=== PATIENT | female | born 1965 | race Caucasian/White ===

== ENCOUNTER 2017-10-04 11:55 | Day surgery (SDC) | payer OTHER, SELFPAY ==
--- NOTE | 2017-10-04 | PATH_ITS ---
[facility] Accession Number: [id number] . 01 Material submitted: . CECAL POLYP . 02 Diagnosis: Cecum Polyp, Biopsies: Tubular adenoma, fragmented; negative for high-grade dysplasia. [facility]/10/05/2017 . 02 Electronically signed: . Samantha Martinez MD, Pathologist NPI- [id number] . 01 Gross description: . Received in one formalin-filled container, labeled with the patient's name, labeled cecal polyp. The specimen consists of four 0.2-0.8 cm portions of tissue, entirely submitted in one cassette. ([id number]) /FRR . 02 Pathologist provided ICD-10: K63.5 . 02 CPT . 939912 Performed at: 01 [facility] [address] [id number] MD Ricco Harrell MD Phone: [phone] Performed at: 02 [facility] [address] [place], [place] [id number] MD Addison Burleson MD Phone: [phone]
[2017-10-04 12:23] VITALS: BMI 23.6
[2017-10-04 12:35] VITALS: BP 110/75; PULSE 64; RESP 15; TEMP 35.9; O2SAT 99
[2017-10-04] MEDS: SODIUM CHLORIDE 0.9% 1,000 ML 200 ML IV (12:37)
--- NOTE | 2017-10-04 12:57 | PM.HP.1 ---
History of Present Illness Date Patient Seen: 10/04/17 Time Patient Seen: 12:57 Chief complaint: 04003 Narrative: 52-year-old female who presents now for colorectal screening. She has had no prior examination for such. On further history today she denies any recent gastrointestinal symptoms. She denies any nausea, vomiting, abdominal pain, loss of appetite, unexplained weight loss, change in bowel habits, diarrhea, constipation, melena, hematochezia, or bright red blood per rectum. Patient History Medical History Chronic sinusitis (Acute) Hypercholesterolemia (Acute) Osteoarthritis (Acute) Seasonal allergies (Acute) Surgical History History of carpal tunnel release (Acute) History of section (Acute) History of lumbar discectomy (Acute) Hx of repair of left rotator cuff (Acute) Hx of repair of right rotator cuff (Acute) Status post hysterectomy (Acute) Family & Social History Family History: Reviewed 10/04/17 by Sebastian Mann MD Social History: household members spouse Tobacco & Substance use: Nonsmoker Comment: No history of alcohol use Meds Home Medications Medication Instructions Recorded Confirmed Type acetaminophen 500 mg PO BEDTIME PRN 10/04/17 10/04/17 History atorvastatin 20 mg PO DAILY 10/04/17 10/04/17 History cetirizine [Zyrtec] 10 mg PO DAILY 10/04/17 10/04/17 History cholecalciferol (vitamin D3) 1,000 unit PO DAILY 10/04/17 10/04/17 History [Vitamin D3] glucosamine sulfate [Glucosamine] See Label Instructions .ROUTE 10/04/17 10/04/17 History .COMPLEX lysine See Label Instructions .ROUTE 10/04/17 10/04/17 History .COMPLEX turmeric root extract 500 mg PO DAILY 10/04/17 10/04/17 History Allergies Allergy/AdvReac Type Severity Reaction Status Date / Time No Known Drug Allergies Allergy Verified 10/04/17 12:18 Review of Systems Review of Systems All systems reviewed & are unremarkable except as noted in HPI and below Exam Vital Signs (past 8 hours): - 10/04/17 12:35 Temperature 96.7 F L Pulse Rate 64 Respiratory Rate 15 Blood Pressure 110/75 Pulse Oximetry 99 Oxygen Delivery Method Room Air Narrative Exam Narrative: Well-nourished well-developed thin female in no acute distress. Alert oriented x3. Her is at the bedside throughout the entire visit. Sclera nonicteric Chest clear to auscultation bilaterally with regular rate rhythm. No murmurs, gallops, rubs Abdomen soft, nondistended, nontender, no masses Extremities show no clubbing, cyanosis, or edema Objective Labs Labs: No recent laboratory or radiographic studies for review Assessment & Plan (1) Screening for colorectal cancer: Current visit: Yes Status: Acute Plan: Assessment/Plan Narrative: 52-year-old female who presents for colorectal screening by age criteria. I recommend colonoscopy. Technical details of the procedure were discussed at length. Risks, benefits, alternatives were explained. Risks including but not limited to sedation, aspiration, bleeding, pain, missed lesion, incomplete examination, need for further radiographic studies, colonic perforation, need for major abdominal surgery, and all attendant risks of major surgery were explained in detail. All questions were answered to her satisfaction, and she voiced understanding. Consent was placed on the chart. We will proceed as planned.
--- NOTE | 2017-10-04 13:03 | PM.PREOP ---
Pre-operative Note Interval Note Pre-op Check: History & Physical Reviewed by Physician, Exam Performed and History & Physical exam performed today H&P completed within 30 days and has changed as indicated here:: History physical examination completed today. Patient requires colorectal screening. Colonoscopy is currently recommended. History physical examination is on the chart today. Consent is signed. Proceed with endoscopy as planned today. ASA Class (for procedural sedation): II
[2017-10-04] MEDS: MIDAZOLAM 5 MG/5 ML VIAL IV (13:22)
[2017-10-04] MEDS: fentaNYL 250 MCG/5 ML INJ IV (13:23)
--- NOTE | 2017-10-04 13:29 | PM.OP.ENDO ---
Operative Date/Time/Diagnoses - Date of procedure: 10/04/17 Time of procedure: 13:29 Pre-op diagnosis: Colorectal screening Post-op diagnosis: other (Cecal polyp) Procedure & Clinicians Study performed: 1. Sedation per surgeon 2. Colonoscopy with cold forceps polypectomy Same procedure as scheduled: Yes Indications: 52-year-old female requiring colorectal screening by age criteria. Colonoscopy was recommended. Surgeon: Sebastian Mann Procedure Notes SCOAP/Timeout: Yes Procedure in detail: After obtaining informed consent, the patient was brought to the GI suite and placed in the left lateral decubitus position on the examination table. After placement of appropriate monitors, the patient was given incremental doses of Versed and Fentanyl until an appropriate level of sedation was achieved. A time out was held per SCOAP protocol. A digital rectal examination was performed and did not reveal any masses or obstructing lesions. The colonoscope was gently passed into the patient's anus and the entire colon navigated to the level of the cecum with minimal difficulty. Once in the cecum, the scope was withdrawn being sure to go before and beyond all mucosal folds and prominences and get an excellent examination. The findings are noted above. At the level of the rectal vault, the scope was retroflexed and the internal anal canal was examined. The scope was straightened and air aspirated from the colon. The instrument was removed from the patient's body and the procedure was concluded. The patient was allowed to awaken from sedation without difficulty and taken to the post-anesthesia care unit in good condition. Scope withdrawal time: 9:23 min Sedation minutes: 20 Findings: polyp (Located in the cecum) and other findings (Other than cecal polyp entire colon and rectum were normal) Specimen(s): other (Cecal polyp) Complications: none Recommendations: Colonscopy in 5 years, High fiber diet and Will call with biopsy results Plan for aftercare: 1. Discharge to home Follow up: as needed Disposition: PACU
[2017-10-04 13:33] VITALS: BP 108/66; PULSE 62; RESP 20; TEMP 37; O2SAT 99
[2017-10-04 13:39] VITALS: BP 118/72; PULSE 57; RESP 17; O2SAT 99
[2017-10-04 13:53] VITALS: BP 121/74; PULSE 52; RESP 16; TEMP 36.8; O2SAT 100
--- NOTE | 2017-10-04 14:22 | SUR.PHASEII ---
pt dressed when ready and left when ready and in stable condition.
== END 2017-10-04 14:10 | disposition home or self-care (01) ==
PROVIDERS: Family Provider Family Medicine; PCP Family Medicine; Visit Provider Surgery
PROC: 0DJD8ZZ Inspection of Lower Intestinal Tract, Via Natural or Artificial Opening Endoscopic (ICD-10-PCS; CPT 45378; principal; 2017-10-04 13:00)
DX: Z12.11 Encounter for screening for malignant neoplasm of colon (principal); D12.0 Benign neoplasm of cecum
CPT/HCPCS: 45380; 99152; J2250; J3010

== ENCOUNTER → 2022-11-14 09:47 | Outpatient (CLI) | payer OTHER, SELFPAY ==
--- NOTE | 2022-11-14 09:54 | DI.RAD.S_ITS ---
PROCEDURE: XR CHEST 2V INDICATIONS: acute cough TECHNIQUE: 2 views of the chest were acquired. COMPARISON: None. FINDINGS: Surgical changes and devices: Postsurgical changes are seen in right humeral head. Lungs and pleura: Lungs are clear. No pleural effusions or pneumothorax. Mediastinum: Tortuous thoracic aorta is noted. Heart size is normal. Bones and chest wall: No suspicious bony abnormalities. Soft tissues appear unremarkable. IMPRESSION: No acute cardiopulmonary pathology. Dictated by: Oliver Santos M.D. on 11/14/2022 at 12:12 Approved by: Oliver Santos M.D. on 11/14/2022 at 12:13
== END ==
PROVIDERS: Family Provider Family Medicine; PCP Family Medicine; Referring Provider Otolaryngology; Visit Provider Otolaryngology
DX: J18.9 Pneumonia, unspecified organism (principal); R05.1 Acute cough
CPT/HCPCS: 71046

== ENCOUNTER 2023-01-26 07:44 | Day surgery (SDC) | payer OTHER, SELFPAY ==
[2023-01-26 07:52] VITALS: BP 103/63; PULSE 60; RESP 16; TEMP 36.4; O2SAT 100; BMI 24.1
[2023-01-26] MEDS: LACTATED RINGERS 1,000 ML 150 ML IV (08:14)
--- NOTE | 2023-01-26 09:12 | P.HP_ITS ---
History of Present Illness History of Present Illness Date Patient Seen: 01/26/23 Time Patient Seen: 09:12 Chief complaint: Colonoscopy Narrative: History for colon polyp. no family history for colon cancer. last scope was 5 years ago. [facility] Medical History Screening for colorectal cancer Osteoarthritis Chronic sinusitis Hypercholesterolemia Seasonal allergies Surgical History History of lumbar discectomy Hx of repair of right rotator cuff Hx of repair of left rotator cuff History of carpal tunnel release History of section Status post hysterectomy Social History household members: spouse Smoking Status: Never smoker alcohol intake: never Meds Home Medications and Allergies Home Medications Medication Instructions Recorded Confirmed Type acetaminophen 500 mg tablet 500 mg PO BEDTIME PRN Insomnia 10/04/17 01/26/23 History cetirizine 10 mg capsule (Zyrtec) 10 mg PO DAILY 10/04/17 01/26/23 History cholecalciferol (vitamin D3) 25 1,000 unit PO DAILY 10/04/17 01/26/23 History mcg (1,000 unit) capsule (Vitamin D3) lysine 1,000 mg tablet See Rx Instructions .Route .COMPLEX 10/04/17 01/26/23 History peg 3350-electrolytes 236 240 ml PO Q10M #4,000 mL 10/13/22 01/26/23 Rx gram-22.74 gram-6.74 gram-5.86 gram solution (Golytely) Allergies Allergy/AdvReac Type Severity Reaction Status Date / Time No Known Drug Allergies Allergy Verified 10/04/17 12:18 Review of Systems Review of Systems ROS: Yes All systems reviewed with the patient and are negative except as otherwise documented Exam Vital Signs (past 8 hours): - 01/26/23 07:52 Temperature 97.5 F L Pulse Rate 60 Respiratory Rate 16 Blood Pressure 103/63 Pulse Oximetry 100 Oxygen Delivery Method Room Air Oxygen Delivery Method Room Air Const General: cooperative and healthy appearing [facility] Head: normocephalic and atraumatic Eyes Sclera: sclerae normal Neck Neck: trachea midline Resp Effort & Inspection: normal respiratory effort and able to speak in complete sentences Cardio Rate: regular rate Rhythm: regular rhythm GI Palpation: soft Skin General: turgor normal Neuro General: patient alert, patient awake and patient oriented x3 Cognition: normal cognition Psych Appearance: grossly normal Judgment: judgment good Assessment & Plan Assessment & Plan narrative: History of colon polyp Colonoscopy with anesthesia Time Spent With Patient Time with patient: less than 30 minutes
--- NOTE | 2023-01-26 10:11 | PM.OP.COLON ---
Operative Date/Time/Diagnoses Date of procedure: 01/26/23 Time of procedure: 10:11 Pre-op diagnosis: History of colon polyps Post-op diagnosis: same Procedure & Clinicians Study performed: Colonoscopy with anesthesia Same procedure as scheduled: Yes Indications: Self history colon polyps Surgeon: Niru Acuna Procedure Notes Procedure in detail: Preop diagnosis: History colon polyps Postop diagnosis: Same Operative procedure: Colonoscopy with anesthesia Surgeon: Bria Acuna MD Findings: Normal colonoscopy. She does have diverticuli in the ascending colon, scant small diverticuli of the descending colon. No polyps Procedure: Patient placed in lateral position. Rectal exam performed showing normal tone no masses. Colonoscope inserted into the rectum and advanced to ileocecal valve with minimal difficulty. Insufflation extraction of the scope including retroflex in the rectum had the above findings. Impression: Diverticulosis of the ascending and descending colon scant in number. No polyps identified Plan: Repeat colonoscopy in 10 years otherwise indicated by change in clinical condition Findings: divertiulosis Specimen(s): none sent Complications: none Post-procedure Recommendations: Colonoscopy in 10 years Follow up: as needed Disposition: PACU
[2023-01-26 10:15] VITALS: BP 107/61; PULSE 72; RESP 18; TEMP 36.1; O2SAT 97
[2023-01-26 10:20] VITALS: BP 101/66; PULSE 60; RESP 12; O2SAT 100
[2023-01-26 10:25] VITALS: BP 107/73; PULSE 60; RESP 12; TEMP 36.6; O2SAT 99
== END 2023-01-26 10:40 | disposition home or self-care (01) ==
PROVIDERS: Surgery; Family Provider Family Medicine; PCP Nurse Practitioner; Referring Provider Surgery; Visit Provider Surgery
PROC: 0DJD8ZZ Inspection of Lower Intestinal Tract, Via Natural or Artificial Opening Endoscopic (ICD-10-PCS; CPT 45378; principal; 2023-01-26 08:45)
DX: Z12.11 Encounter for screening for malignant neoplasm of colon (principal); Z86.010 Personal history of colon polyps; K57.30 Diverticulosis of large intestine without perforation or abscess without bleeding
CPT/HCPCS: 45378; J2704